=== PATIENT | female | born 1985 | race Caucasian/White ===

== ENCOUNTER 2018-09-19 13:18 | Emergency (ER) | payer MEDICAID ==
[~2018-09-19] VITALS: Wt 51.1 kg
[2018-09-19 13:30] VITALS: BP 134/72; PULSE 76; RESP 18
[2018-09-19] MEDS ORDERED: LORA1TAB PO ×2 (13:38→13:42)
[2018-09-19] MEDS ORDERED: NAPR-985 PO (13:38)
[2018-09-19] MEDS ORDERED: CYCL10TA7 PO (13:38)
[2018-09-19] MEDS ORDERED: IBUP-1561 PO (13:39)
--- NOTE | 2018-09-19 20:20 | ERD ---
ER Documentation Chief Complaint Chief Complaint back pain, HPI 33-year-old female presenting to the emergency department complaints of intermittent back pain with radiation down her right leg. She reports moderate to severe symptoms. She states pain began after lifting a heavy dog crate. She took no medication for relief of symptoms. Additionally, she reports sniffing and grief due to losing her sister approximately 1 month ago. She reports anxiety and crying spells due to this. She adamantly denies any homicidal or suicidal ideation. She denies any loss of bowel or bladder function. She denies any other symptoms at this time. ROS All systems reviewed and are negative except as per history of present illness. Medications Home Meds Active Scripts Lorazepam* (Lorazepam*) 1 Mg Tablet, 1 MG PO Q8H PRN for ANXIETY, #5 TAB Prov:IBRAHIMA HOWE PA-C 09/19/18 Ibuprofen* (Motrin*) 400 Mg Tab, 400 MG PO Q6, #30 TAB Prov:IBRAHIMA HOWE PA-C 09/19/18 Naproxen* (Naprosyn*) 500 Mg Tablet, 500 MG PO BID PRN for PAIN AND/OR INFLAMMATION, #30 TAB Prov:IBRAHIMA HOWE PA-C 09/19/18 Cyclobenzaprine Hcl* (Cyclobenzaprine Hcl*) 10 Mg Tablet, 10 MG PO TID, #15 TAB Prov:IBRAHIMA HOWE PA-C 09/19/18 Lorazepam* (Lorazepam*) 1 Mg Tablet, 1 MG PO Q8H PRN for ANXIETY, #5 TAB Prov:IBRAHIMA HOWE PA-C 09/19/18 PMhx/Soc Medical and Surgical Hx: pt denies Medical Hx FmHx Family History: No diabetes Physical Exam Vitals Vital Signs Date Temp Pulse Resp B/P (MAP) Pulse Ox O2 O2 Flow FiO2 Time Delivery Rate 09/19/18 98.1 76 18 134/72 99 13:30 (92) Physical Exam Const: No acute distress Head: Atraumatic Eyes: Normal Conjunctiva ENT: Normal External Ears, Nose and Mouth. Neck: Full range of motion. No meningismus. Resp: Clear to auscultation bilaterally Cardio: Regular rate and rhythm, no murmurs Skin: No petechiae or rashes Back: No midline or flank tenderness. There is tenderness palpation of the paraspinal muscles of the lumbar spine on the right. Positive straight leg raise on the right. Ext: No cyanosis, or edema Neur: Awake and alert Psych: Tearful. Adamantly denies any homicidal or suicidal ideation. Procedures/MDM 33-year-old female presented to the emergency department with signs and symptoms most consistent with grief reaction and right-sided low back pain with sciatica. Patient adamantly denied any homicidal or suicidal ideation. She was given resources for community clinics and was advised to follow-up with psychiatrist and psychologist within the next 24 to 48 hours. She demonstrated good under standing of this information and her questions and concerns were addressed. Patient's musculoskeletal symptoms have stabilized while they have been evaluated in the department and are appropriate for outpatient work up. No evidence of cauda equina, cord compression, infiltrative, or infectious etiology. No evidence of life-threatening pathology at time of discharge. Pt/family in agreement with discharge plan/diagnosis. Pt/family advised to return immediately with any new or worsening symptoms. Follow-up with primary care physician within the next 1-2 days. Departure Diagnosis: Primary Impression: Low back pain with sciatica Additional Impression: Grief reaction Condition: Fair Patient Instructions: Grief and Loss, Back Pain W/ Sciatica Referrals: [facility] YOU HAVE RECEIVED A MEDICAL SCREENING EXAM AND THE RESULTS INDICATE THAT YOU DO NOT HAVE A CONDITION THAT REQUIRES URGENT TREATMENT IN THE EMERGENCY DEPARTMENT. FURTHER EVALUATION AND TREATMENT OF YOUR CONDITION CAN WAIT UNTIL YOU ARE SEEN IN YOUR DOCTORS OFFICE WITHIN THE NEXT 1-2 DAYS. IT IS YOUR RESPONSIBILITY TO MAKE AN APPOINTMENT FOR FOLOW-UP CARE. IF YOU HAVE A PRIMARY DOCTOR --you should call your primary doctor and schedule an appointment IF YOU DO NOT HAVE A PRIMARY DOCTOR YOU CAN CALL OUR PHYSICIAN REFERRAL HOTLINE AT IF YOU CAN NOT AFFORD TO SEE A PHYSICIAN YOU CAN CHOSE FROM THE FOLLOWING [facility] [id number] [facility] [address] [facility] [address] [facility] [address] [facility] [address] [facility]. [facility] [address] Additional Instructions: Call your primary care doctor TOMORROW for an appointment during the next 1-2 days.See the doctor sooner or return here if your condition worsens before your appointment time. IBRAHIMA HOWE PA-C September 19, 2018 20:20
== END 2018-09-19 14:19 | disposition home or self-care (01) ==
LOC: E/R 13:18
DX: M54.41 Lumbago with sciatica, right side (principal); F43.20 Adjustment disorder, unspecified
CPT/HCPCS: 99283